=== PATIENT | male | born 2000 | race Caucasian/White ===

== ENCOUNTER 2023-07-07 08:30 | Emergency (ER) | payer MEDICAID ==
[~2023-07-07] VITALS: Ht 167.6 cm; Wt 59.9 kg
[2023-07-07 09:03] VITALS: BP 125/77; PULSE 89; RESP 18; TEMP 98; O2SAT 98
[2023-07-07] MEDS ORDERED: FLUORESCEIN OPTH STRIP 1 MG OP ONE (09:55)
[2023-07-07] MEDS ORDERED: TETRACAINE HCL/PF 0.5% OPTH 4 ML BTL OP ONE (09:55)
[2023-07-07] MEDS ORDERED: IBUP-2213 PO (10:22)
[2023-07-07] MEDS ORDERED: CILOS RIGHT EYE (10:22)
[2023-07-07 10:54] VITALS: BP 125/77; PULSE 89; RESP 18; TEMP 98; O2SAT 98
== END 2023-07-07 10:57 | disposition home or self-care (01) ==
LOC: MED 08:30
DX: S05.01XA Injury of conjunctiva and corneal abrasion without foreign body, right eye, initial encounter (principal); X58.XXXA Exposure to other specified factors, initial encounter; Y93.89 Activity, other specified; Y92.89 Other specified places as the place of occurrence of the external cause; Y99.8 Other external cause status
CPT/HCPCS: 99283